=== PATIENT | male | born 1985 | race Two or more races ===

== ENCOUNTER 2024-08-17 11:42 | Emergency (ER) | payer MEDICAID, SELFPAY ==
[2024-08-17 12:05] VITALS: BP 129/91; PULSE 140; RESP 18; TEMP 36.8; O2SAT 98; BMI 32.4
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
[2024-08-17 14:53] VITALS: BP 123/87; PULSE 104; RESP 20; TEMP 36.8; O2SAT 99
== END 2024-08-17 15:47 ==
PROVIDERS: Emergency Provider Emergency Medicine
DX: Z02.89 Encounter for other administrative examinations (principal); R51.9 Headache, unspecified; J98.4 Other disorders of lung; S22.42XA Multiple fractures of ribs, left side, initial encounter for closed fracture; Y04.0XXA Assault by unarmed brawl or fight, initial encounter
CPT/HCPCS: 71046; 99283

== ENCOUNTER 2024-08-18 07:51 | Emergency (ER) | payer MEDICAID, SELFPAY ==
[2024-08-18 07:59] VITALS: BP 148/104; PULSE 118; RESP 18; TEMP 36.9; O2SAT 96; BMI 32.9
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
== END 2024-08-18 08:38 | disposition home or self-care (01) ==
LOC: SERX 08:34
PROVIDERS: Emergency Provider Family Medicine
DX: S22.49XA Multiple fractures of ribs, unspecified side, initial encounter for closed fracture (principal); Y09 Assault by unspecified means
CPT/HCPCS: 99281